=== PATIENT | male | born 1980 | race Caucasian/White ===

== ENCOUNTER 2022-03-24 08:12 | Emergency (ER) | payer MEDICAID ==
[~2022-03-24] VITALS: Ht 172.7 cm; Wt 63.4 kg
[~2022-03-24 08:12] MED LIST: HYDR-4383 PO; ONDA4TAB6 PO
[2022-03-24 09:12] VITALS: BP 124/86
== END 2022-03-24 09:14 ==
LOC: ER 08:12
DX: Z00.8 Encounter for other general examination (principal); Z88.5 Allergy status to narcotic agent; Z79.899 Other long term (current) drug therapy
CPT/HCPCS: 99284

== ENCOUNTER 2022-04-14 23:54 | Emergency (ER) | payer SELFPAY ==
--- NOTE | 2022-04-15 00:13 | NUR ---
PT WAS CALLED TO TRIAGE PT IN BATHROOM FOR 30 MIN . PT LEFT BATHRROM AND VERBALIZED " IFXED MYSELF " I DODNT NEED OR WANT TO BE SEEN . PT WALKED OUT OF LOBBY WITH STEADY GAIT SAYING GOODBYE
== END 2022-04-15 00:24 | disposition left against medical advice (07) ==
LOC: ER 23:55
DX: M79.601 Pain in right arm (principal); Z53.21 Procedure and treatment not carried out due to patient leaving prior to being seen by health care provider

== ENCOUNTER 2022-05-21 19:16 | Emergency (ER) | payer SELFPAY ==
[~2022-05-21] VITALS: Ht 172.7 cm; Wt 65.9 kg
[2022-05-21] MEDS ORDERED: bacitracin 15gm ointment TP ONE (21:25)
[2022-05-21 22:02] VITALS: BP 114/75
== END 2022-05-21 22:02 | disposition home or self-care (01) ==
LOC: ER 19:16
DX: M25.522 Pain in left elbow (principal); Z88.5 Allergy status to narcotic agent
CPT/HCPCS: 73080; 87070; 87077; 87186; 99284